=== PATIENT | male | born 1940 | race Caucasian/White ===

== ENCOUNTER 2017-02-25 01:17 | Emergency (ER) | payer OTHER, BC ==
--- NOTE | ~2017-02-25 | EKG ---
PATIENT: SOLEDAD LOPEZ UNIT #: [id number] Ventricular Rate: 82 BPM Atrial Rate: 82 BPM P-R Interval: 158 ms QRS Duration: 138 ms Q-T Interval: 434 ms QTC Calculation(Bezet): 507 ms P [place]: 60 degrees Calculated R [place]: -48 degrees Calculated T [place]: 58 degrees Diagnosis Line: Sinus rhythm with Premature atrial complexes Diagnosis Line: Right bundle branch block Diagnosis Line: Left anterior fascicular block Diagnosis Line: Bifascicular block Diagnosis Line: Septal infarct , age undetermined Diagnosis Line: Abnormal ECG Diagnosis Line: When compared with ECG of 26-JUN-2015 08:20, Diagnosis Line: Premature atrial complexes are now Present Diagnosis Line: Septal infarct is now Present Diagnosis Line: T wave inversion now evident in Lateral leads Diagnosis Line: Confirmed by FAREED HUYNH MD ([id number]) on Diagnosis Line: 02/26/2017 10:33:51 AM INTERPRETING MD: LINO [id number]
[~2017-02-25 01:17] MED LIST: ACTOS PO; AMLODIPINE-BENA1 CA1 PO; BAYER ASPIRIN325 M1 PO; CARVEDILOL3.125 MG PO; CILOSTAZOL50 MG PO; CLINDAMYCIN HC300 MG PO; COREG3.125 MG PO; DIABETA5 M1 PO; ESCITALOPRAM OX10 MG PO; FLOMAX0.4 M1; GLIPIZIDE5 MG/BOTT1 PO; JANUVIA100 MG PO; LASIX20 MG PO; NORVASC10 MG PO; PHOSLO667 M1 PO; RENAPLEX; SIMVASTATIN40 MG PO; STAHIST TA1 TAB.SR . PO; ULORIC40 MG; VICODIN 5/1 TAB 5/50 PO; VITAMIN D31000 UNIT PO
[2017-02-25] MEDS ORDERED: NORVASC10 MG PO (01:26)
[2017-02-25] MEDS ORDERED: CALCIUM ACETAT667 M1 PO (01:26)
[2017-02-25] MEDS ORDERED: COREG3.125 M1 PO (01:27)
[2017-02-25] MEDS ORDERED: VITAMIN D1000 UNI1 PO (01:27)
[2017-02-25] MEDS ORDERED: LEXAPRO PO (01:28)
[2017-02-25] MEDS ORDERED: PLETAL100 M1 PO (01:28)
[2017-02-25] MEDS ORDERED: ULORIC40 MG PO ×2 (01:28→01:29)
[2017-02-25] MEDS ORDERED: MULTI-DAY VITA1 EACH PO (01:29)
[2017-02-25] MEDS ORDERED: FLOMAX0.4 M1 PO (01:29)
[2017-02-25] MEDS ORDERED: [UNRECOGNIZED DRUG - OTHER] PO (01:29)
[2017-02-25] MEDS ORDERED: GLIPIZIDE XL5 MG PO (01:52)
[2017-02-25 01:58] LABS: BASOPHIL# 0.1 X10e3 (0-0.3); DIFF IND NO; EOSINOPHIL# 0.1 X10e3 (0-0.7); EOSINOPHIL% 1.8 % (0.0-7.0); HEMATOCRIT 27.2 % (38.0-50.0); LYMPHOCYTE# 0.7 X10e3 (1.0-3.5); LYMPHOCYTE% 10.1 % (17.0-45.0); MEAN CELL VOLUME 86.2 FL (83-96); MEAN CORPUSCULAR HEMOGLOBIN 28.5 PG (28-34); MEAN CORPUSCULAR HGB CONC 33.1 g/dL (30-36); MEAN PLATELET VOLUME 7.8 FL (6.5-11.5); MONOCYTE# 0.5 X10e3 (0-1.0); MONOCYTE% 7.5 % (3.0-12.0); NEUTROPHIL# 5.4 X10e3 (1.5-7.1); NEUTROPHIL% 79.6 % (40-75); PLATELET COUNT 131 X10e3 (140-420); RED BLOOD COUNT 3.16 X10e (3.90-5.60); WHITE BLOOD COUNT 6.7 X10e3 (4.0-10.5)
[2017-02-25 02:07] LABS: POC - CKMB 4.3 ng/mL (0.0-7.9); POC - TROPONIN 0.12 ng/mL (<=0.05)
[2017-02-25 02:20] LABS: INR 1.2; PARTIAL THROMBOPLASTIN TIME 30.1 SECONDS (23.5-31.3); PROTHROMBIN TIME (PATIENT) 12.8 SECONDS (10.0-11.7)
[2017-02-25 02:23] LABS: BUN/CREATININE RATIO 6.42; CALCIUM SERUM 8.8 mg/dL (8.4-10.2); CREATININE SERUM 5.6 mg/dL (0.6-1.4); GLOM FILT RATE Estimated 9.2 mL/min (>60); POTASSIUM 3.3 mmol/L (3.5-5.1)
== END 2017-02-25 03:25 | disposition home or self-care (01) ==
LOC: CED 01:17 → CFTX 03:25 → CED 03:25
PROVIDERS: Emergency Medicine
DX: R53.83 Other fatigue (principal); E11.22 Type 2 diabetes mellitus with diabetic chronic kidney disease; I12.0 Hypertensive chronic kidney disease with stage 5 chronic kidney disease or end stage renal disease; N18.6 End stage renal disease; Z99.2 Dependence on renal dialysis; Z90.49 Acquired absence of other specified parts of digestive tract; Z98.890 Other specified postprocedural states; Z79.899 Other long term (current) drug therapy
CPT/HCPCS: 36415; 80048; 82553; 84484; 85025; 85610; 85730; 93005; 99284